=== PATIENT | male | born 1980 | race Caucasian/White ===

== ENCOUNTER 2016-11-03 20:53 | Emergency (ER) ==
[2016-11-03 21:17] VITALS: BP 121/73; TEMP 99.1; BMI 22.4
--- NOTE | 2016-11-03 21:22 | ED.PDOC ---
General ED Provider: Dr. NIMISHA ELIZABETH-ER Chief Complaint: Toe Pain/Injury Stated Complaint: my toes hurt when i walk Time Seen by Physician: 21:15 Mode of Arrival: Walk-In Information Source: Patient Exam Limitations: No limitations Nursing and Triage Documentation Reviewed and Agree: Yes Skin Complaint Exam - Skin/Soft Tissue Complaint/Exam Onset/Duration: 3mos Symptoms Are: Still present Timing: Constant Initial Severity: Mild Current Severity: Mild Location: 4ht and 5th toes left foot Character: Reports: Redness, Swelling, Raised, Painful Aggravating: Reports: None Alleviating: Reports: None Associated Signs and Symptoms: Reports: Tenderness. Denies: Fever, Chills, Itching, Drainage, Bruising, Red streaks, Joint swelling Related Surgical History: Reports: None Recent Exposure to Others w/Similar Symptoms: No Skin Findings: Present: Erythema, Induration, Skin lesion Joint Tenderness Present: No Differential Diagnoses: Infection Review of Systems - Review Of Systems Constitutional: Reports: No symptoms Eyes: Reports: No symptoms Ears, Nose, Mouth, Throat: Reports: No symptoms Respiratory: Reports: No symptoms Cardiac: Reports: No symptoms GI: Reports: No symptoms : Reports: No symptoms Musculoskeletal: Reports: No symptoms Skin: Reports: Other (noted callous 4th and 5th toes) Neurological: Reports: No symptoms Endocrine: Reports: No symptoms Hematologic/Lymphatic: Reports: No symptoms All Other Systems: Reviewed and Negative Past Medical History - Past Medical History Previously Healthy: Yes Endocrine: Reports: None Cardiovascular: Reports: None Respiratory: Reports: None Hematological: Reports: None Gastrointestinal: Reports: None Genitourinary: Reports: None Neuro/Psych: Reports: None Musculoskeletal: Reports: Back Pain Cancer: Reports: None - Surgical History General Surgical History: Reports: Unknown - Family History Family History: Reports: Unknown - Social History Smoking Status: Never smoker Hx Substance Use: No Alcohol Screening: Occasionally Lives: With family - Immunizations Tetanus Shot up to Date: Yes Physical Exam - Physical Exam Appearance: Well-appearing, No pain distress, Well-nourished Pain Distress: Mild Eyes: OLIVE, EOMI, Conjunctiva clear ENT: Ears normal, Nose normal, Oropharynx normal Neck: Supple Respiratory: Airway patent Cardiovascular: RRR GI/: Soft Musculoskeletal: Normal strength, ROM intact, No edema, No calf tenderness Skin: Warm, Dry, Normal color (noted callous between 4th and 5th toes--tender to touch--left 5th digit is erythematous and tender) Neurological: Sensation intact, Motor intact, Reflexes intact, Cranial nerves intact, Alert, Oriented Psychiatric: Affect appropriate, Mood appropriate Interpretation - Radiology Interpretation Radiology Interpretation By: ED Physician Radiology Results: Negative Critical Care Note - Critical Care Note Total Time (mins): 0 Course - Course Orders, Labs, Meds: Orders Category Date Time Status TOE(S), LEFT MIN 2V Stat RADS 11/03/16 21:08 Taken Vital Signs: Temp Pulse Resp BP Pulse Ox 11/03/16 21:10 99.1 F 126 H 20 121/73 96 Departure - Departure Time of Disposition: 21:23 Disposition: HOME SELF-CARE Discharge Problem: Pain in toe Instructions: Blister (ED) Condition: Good Pt referred to PMD for follow-up: Yes Additional Instructions: keflex 500mg bid x 7days--epsom salts---i suggest he see dr vivar about lesion between 4th and 5th toes--ultram 50mg q 8hrs prn pain #12 Allergies/Adverse Reactions: Allergies No Known Allergies Allergy (Verified 11/03/16 21:17) Home Medications: Ambulatory Orders 1 [No Reported Medications] 01/26/14 Disposition Discussed With: Patient, Family
--- NOTE | 2016-11-04 06:53 | DI ---
EXAM: Radiographs, left fifth toe HISTORY: Left fifth toe pain. COMPARISON: None available. TECHNIQUE: Three views. FINDINGS: Bone mineralization is normal. There is no fracture or dislocation. The joint spaces ar e maintained. No focal soft tissue abnormality is seen. IMPRESSION: No fracture or dislocation.
== END 2016-11-03 21:39 | disposition home or self-care (01) ==
LOC: ED 20:53
DX: M79.675 Pain in left toe(s) (principal)
CPT/HCPCS: 99282